=== PATIENT | female | born 1950 | race Two or more races ===

== ENCOUNTER → 2024-12-19 | Outpatient (CLI) | payer MEDICARE, MEDICAID, SELFPAY ==
--- NOTE | 2024-12-19 12:00 | XR_ITS ---
Examination: Bone densitometry Date and time of exam:December 19, 2024 1232 hours INDICATIONS: Menopause age 47, levothyroxine 9 years Technique: Lumbar spine and hip total bone mineralization values of an calculated. Peak reference and age match control results have been displayed. Findings: Lumbar spine total bone mineralization is1.212 gm/cm2. This is 1.5 standard deviations above peak reference. This is 3.9 standard deviations above age-matched controls. Hip total bone mineralization is 1.004 gm/cm2 This is 0.3 standard deviations above peak reference. This is 2.1 standard deviations above age-matched controls Impression: There is normal mineralization based on lumbar spine measurements. There is normal mineralization based on hip measurements
== END | disposition home or self-care (01) ==
LOC: CDIM 11:42
PROVIDERS: PCP Emergency Medicine; Referring Provider Emergency Medicine; Visit Provider Emergency Medicine
DX: M81.0 Age-related osteoporosis without current pathological fracture (principal)
CPT/HCPCS: 77080

== ENCOUNTER → 2025-04-06 | Outpatient (CLI) | payer MEDICARE, MEDICAID, SELFPAY ==
--- NOTE | 2025-04-06 14:30 | XR_ITS ---
EXAMINATION: Thyroid sonography complete TECHNIQUE: Grayscale sonographic images thyroid lobes April 06, 2025 1449 hours INDICATIONS: Abnormal outside thyroid sonogram 2 years ago FINDINGS: Right thyroid 4.5 cm Left thyroid 3.7 cm No thyroid nodules IMPRESSION: Negative study
== END | disposition home or self-care (01) ==
PROVIDERS: PCP Emergency Medicine; Referring Provider Emergency Medicine; Visit Provider Emergency Medicine
DX: R93.89 Abnormal findings on diagnostic imaging of other specified body structures (principal)
CPT/HCPCS: 76536